=== PATIENT | male | born 1945 | race Caucasian/White ===

== ENCOUNTER 2022-06-26 12:29 | Emergency (ER) | payer MEDICARE ==
[~2022-06-26] VITALS: Wt 65.8 kg
[2022-06-26 13:44] LABS: BASO % 0.4 % (0.0-1.0); EOS # 0.1 10*3/uL (0.0-0.4); EOS % 1.4 % (1.0-4.0); HEMATOCRIT 44.4 % (42.0-52.0); LYMPH # 0.9 10*3/uL (1.3-4.4); LYMPH % 11.8 % (27.0-41.0); MEAN CELL VOLUME 94.7 fl (80.0-94.0); MEAN CORPUSCULAR HGB 32.2 pg (27.0-31.0); MEAN PLATELET VOLUME 9.8 fl (9.6-12.3); MONO # 0.8 10*3/uL (0.1-1.0); NEUT # 5.5 10*3/uL (2.3-7.9); NEUT % 75.1 % (47.0-73.0); PLATELET COUNT AUTOMATED 240 10*3/uL (130-400); RED BLOOD COUNT 4.69 10*6/uL (4.50-5.90); RED CELL DISTRI WIDTH 12.1 % (0-14.5); WHITE BLOOD COUNT 7.3 10*3/uL (4.8-10.8)
[2022-06-26 14:02] LABS: ACT PARTIAL THROMBO TIME 28.7 SECONDS (20.0-32.1)
[2022-06-26 14:05] LABS: ALKALINE PHOSPHATASE 88 U/L (45-117); BUN 12 mg/dl (7-24); CHLORIDE 104 mmol/L (98-107); CREATININE 1.13 mg/dL (0.70-1.30); POTASSIUM 4.3 mmol/L (3.5-5.1); SGOT/AST 43 IU/L (3-35); SGPT/ALT 47 U/L (12-78); SODIUM 135 mmol/L (136-145); TOTAL PROTEIN 7.4 gm/dL (6.4-8.2)
[2022-06-27] MEDS ORDERED: METOPROLOL SUCC50 M1 PO (03:42)
[2022-06-27] MEDS ORDERED: TRAMADOL HCL50 MG PO (03:42)
[2022-06-27] MEDS ORDERED: PANTOPRAZOLE SO40 MG PO (03:43)
[2022-06-27] MEDS ORDERED: LOSARTAN POTAS100 M1 PO (03:45)
== END 2022-06-28 08:00 | disposition short-term general hospital (02) ==
LOC: ED 12:29
PROVIDERS: Emergency Medicine
DX: R53.1 Weakness (principal); R20.0 Anesthesia of skin; I10 Essential (primary) hypertension; K21.9 Gastro-esophageal reflux disease without esophagitis